=== PATIENT | female | born 1960 | race Caucasian/White ===

== ENCOUNTER 2016-12-17 13:38 | Emergency (ER) | payer SELFPAY ==
[~2016-12-17] VITALS: Ht 162.6 cm; Wt 70.0 kg
[~2016-12-17 13:38] MED LIST: ASPI-1061 PO; LOVA20 PO; METO-323 PO
[2016-12-17 13:51] LABS: GLUCOSE,POINT OF CARE 152 MG/DL (70-110)
[2016-12-17] MEDS ORDERED: DiphenhydrAMINE HCL 50 MG/ML VIAL IVP ONE (14:00)
[2016-12-17] MEDS ORDERED: METOCLOPRAMIDE HCL 5 MG/ML 2 ML VIAL IVP ONE (14:00)
[2016-12-17] MEDS ORDERED: SODIUM CHLORIDE 0.9% 1,000 ML IV ONE (14:00)
[2016-12-17 14:23] LABS: BASOPHILS % (AUTO) 0.5 % (0.0-2.0); EOSINOPHILS % (AUTO) 1.3 % (1.0-6.0); HEMATOCRIT 35.6 % (36-46); HEMOGLOBIN 11.6 g/dL (12.0-16.0); LYMPHOCYTES # (AUTO) 3.2 K/uL (1.0-4.8); LYMPHOCYTES % (AUTO) 28.3 % (22.0-44.0); MEAN CORPUSCULAR HEMOGLOBIN 24.1 pg (26.0-34.0); MEAN CORPUSCULAR HGB CONC 32.7 G/dL (31.0-37.0); MEAN CORPUSCULAR VOLUME 74 fL (80-100); MONOCYTES # (AUTO) 0.6 K/uL (0.1-1.0); MONOCYTES % (AUTO) 5.5 % (2.0-9.0); NEUTROPHILS # (AUTO) 7.2 K/uL (1.8-7.7); NEUTROPHILS % (AUTO) 64.4 % (40.0-70.0); PLATELET COUNT (AUTO) 361 K/uL (150-450); RED BLOOD CELL COUNT(AUTO) 4.84 MIL/uL (4.00-5.20); RED CELL DISTRIBUTION WIDTH 16.4 % (11.5-14.5); WHITE BLOOD COUNT (AUTO) 11.1 K/uL (4.5-11.0)
[2016-12-17 14:34] LABS: CALCIUM, TOTAL 9.1 mg/dL (8.8-10.5); CREATININE 1.18 mg/dL (0.60-1.30); POTASSIUM 4.1 mmol/L (3.5-5.1)
[2016-12-17 15:15] VITALS: BP 129/86
== END 2016-12-17 15:43 | disposition home or self-care (01) ==
LOC: EMS 13:39
DX: R42 Dizziness and giddiness (principal); E11.9 Type 2 diabetes mellitus without complications; I10 Essential (primary) hypertension; R11.2 Nausea with vomiting, unspecified; Z79.82 Long term (current) use of aspirin
CPT/HCPCS: 36415; 80048; 82962; 85025; 93005; 96361; 96374; 96375; 99285; J1200; J2765; J7030